=== PATIENT | male | born 1965 | race Caucasian/White ===

== ENCOUNTER 2023-07-17 10:38 | Emergency (ER) | payer SELFPAY ==
[~2023-07-17] VITALS: Ht 180.3 cm; Wt 95.3 kg
[2023-07-17] MEDS ORDERED: PREDNISONE20 M1 PO (11:00)
== END 2023-07-17 11:15 | disposition home or self-care (01) ==
LOC: ED 10:38
DX: L23.7 Allergic contact dermatitis due to plants, except food (principal)